=== PATIENT | female | born 1960 | race Caucasian/White ===

== ENCOUNTER 2017-03-27 12:31 | Emergency (ER) | payer MEDICARE, OTHER | END 2017-03-27 14:35 | disposition home or self-care (01) | LOC: ER1 12:31 | DX: S20.212A Contusion of left front wall of thorax, initial encounter (principal); J44.9 Chronic obstructive pulmonary disease, unspecified; I10 Essential (primary) hypertension; Z87.891 Personal history of nicotine dependence; W03.XXXA Other fall on same level due to collision with another person, initial encounter; Z88.0 Allergy status to penicillin; Z88.1 Allergy status to other antibiotic agents | CPT/HCPCS: 71101; 99283 ==

== ENCOUNTER → 2021-08-12 | Outpatient (CLI) | payer MEDICARE, OTHER | LOC: HEART 5 08-11 08:15 | DX: R07.9 Chest pain, unspecified (principal); R06.02 Shortness of breath | CPT/HCPCS: 78452; A9502; J2785 ==

== ENCOUNTER → 2022-04-08 | Outpatient (CLI) | payer MEDICARE, OTHER | END | disposition home or self-care (01) | LOC: WCC 07:39 | PROC: 0JBP0ZZ Excision of Left Lower Leg Subcutaneous Tissue and Fascia, Open Approach (ICD-10-PCS; principal; 2022-04-08) | DX: I87.313 Chronic venous hypertension (idiopathic) with ulcer of bilateral lower extremity (principal); L97.821 Non-pressure chronic ulcer of other part of left lower leg limited to breakdown of skin; I10 Essential (primary) hypertension; J44.9 Chronic obstructive pulmonary disease, unspecified; G60.3 Idiopathic progressive neuropathy; G89.29 Other chronic pain; M54.9 Dorsalgia, unspecified; G47.30 Sleep apnea, unspecified; F17.210 Nicotine dependence, cigarettes, uncomplicated; E66.01 Morbid (severe) obesity due to excess calories; Z68.35 Body mass index [BMI] 35.0-35.9, adult; Z86.718 Personal history of other venous thrombosis and embolism; Z88.0 Allergy status to penicillin; Z88.1 Allergy status to other antibiotic agents ==

== ENCOUNTER → 2022-04-29 | Outpatient (CLI) | payer MEDICARE, OTHER | LOC: CT 11:06 | DX: I27.20 Pulmonary hypertension, unspecified (principal); R91.1 Solitary pulmonary nodule | CPT/HCPCS: ECHO; 36415; 82565; 84520; 93306; Q9967 ==

== ENCOUNTER → 2022-05-04 | Outpatient (CLI) | payer MEDICARE, OTHER | LOC: HEART 5 09:15 | DX: J44.9 Chronic obstructive pulmonary disease, unspecified (principal) | CPT/HCPCS: 94060; 94729 ==